=== PATIENT | male | born 1970 | race Caucasian/White ===

== ENCOUNTER 2017-05-10 11:43 | Emergency (ER) | payer SELFPAY ==
[~2017-05-10] VITALS: Ht 180.3 cm; Wt 81.0 kg
[2017-05-10 11:45] VITALS: BP 120/84
[2017-05-10] MEDS ORDERED: FLUO10CA63 PO (11:48)
[2017-05-10] MEDS ORDERED: TRAZ-129 PO (11:48)
[2017-05-10] MEDS ORDERED: QUET25TA PO (11:48)
[2017-05-10] MEDS ORDERED: LORAZEPAM 1MG TABLET PO ONE (12:00)
[2017-05-10] MEDS ORDERED: OLANZAPINE 10MG TABLET ODT PO ONE (12:00)
== END 2017-05-10 12:30 | disposition left against medical advice (07) ==
LOC: EDBD → ER 12:29
DX: F29 Unspecified psychosis not due to a substance or known physiological condition (principal); F20.9 Schizophrenia, unspecified; F31.9 Bipolar disorder, unspecified
CPT/HCPCS: 99284; Z7610

== ENCOUNTER 2017-05-19 16:52 | Emergency (ER) | payer SELFPAY ==
[~2017-05-19] VITALS: Ht 175.3 cm; Wt 70.0 kg
[~2017-05-19 16:52] MED LIST: FLUO10CA63 PO; QUET25TA PO; TRAZ-129 PO
[2017-05-19 16:55] VITALS: BP 149/62
== END 2017-05-19 18:44 | disposition left against medical advice (07) ==
LOC: ER 17:25
DX: F41.8 Other specified anxiety disorders (principal); Z53.21 Procedure and treatment not carried out due to patient leaving prior to being seen by health care provider

== ENCOUNTER 2018-02-12 08:16 | Emergency (ER) | payer MEDICAID ==
[~2018-02-12] VITALS: Ht 177.8 cm; Wt 75.0 kg
[~2018-02-12 08:16] MED LIST changes: +FLUO10CA25 PO; -FLUO10CA63 PO
[2018-02-12 11:40] VITALS: BP 129/79
== END 2018-02-12 11:40 | disposition home or self-care (01) ==
LOC: ER 08:43
DX: F41.9 Anxiety disorder, unspecified (principal); F31.9 Bipolar disorder, unspecified; F12.10 Cannabis abuse, uncomplicated
CPT/HCPCS: 99284